=== PATIENT | male | born 1990 | race African-American/Black ===

== ENCOUNTER 2017-07-26 19:03 | Emergency (ER) | payer SELFPAY ==
[~2017-07-26] VITALS: Ht 177.8 cm; Wt 78.9 kg
--- NOTE | 2017-07-26 19:34 | NUR ---
Patient discharged to home in stable conditon. Written and verbal after care instructions given. Patient verbalizes understanding of instructions.
== END 2017-07-26 19:35 | disposition home or self-care (01) ==
LOC: ER 19:05
DX: J11.1 Influenza due to unidentified influenza virus with other respiratory manifestations (principal)
CPT/HCPCS: A4663